=== PATIENT | male | born 1985 | race American Indian/Alaskan Native ===

== ENCOUNTER 2016-08-26 10:04 | Emergency (ER) | payer OTHER ==
[2016-08-26 10:57] VITALS: BP 127/81
[2016-08-26] MEDS ORDERED: BSS 1 DROPS, TETRACAINE 0.5% 1 DROPS, FUL-GLO 1 MG OU ONE (11:56)
--- NOTE | 2016-08-26 12:02 | Emergency Department Report ---
ED Eye Problem HPI - General Chief complaint: Eye Problems Stated complaint: LT EYE SWELLING Time Seen by Provider: 08/26/16 11:56 Source: patient Mode of arrival: Ambulatory Limitations: No Limitations - History of Present Illness Initial comments: She is a 30-year-old male presents ED complaining of left eye pain and irritation times today. Patient states this morning he was walking and walked into a ware and brushed his left eye. Patient states irritation and clear drainage began afterwards. Patient's is difficulty opening left eye. Patient denies feeling a foreign object in eye. Patient denies fever/chills/nausea/vomiting/abdominal pain/loss of vision/ blurry vision. - Related Data Previous Rx's Medication Instructions Recorded Last Taken Type Ketorolac Tromethamine [Acular 1 - 2 drops OP Q6H #10 ml 08/26/16 Unknown Rx 0.5% Opth Soln] Polymyxin B Sulf/Trimethoprim 1 - 2 drops OP TID #10 ml 08/26/16 Unknown Rx [Polytrim Eye Drops [id number]/0.1%] Allergies Allergy/AdvReac Type Severity Reaction Status Date / Time No Known Allergies Allergy Unverified 08/26/16 10:54 ED Review of Systems ROS: Stated complaint: LT EYE SWELLING Other details as noted in HPI Constitutional: denies: chills, fever Eyes: eye pain. denies: eye discharge, vision change ENT: denies: ear pain, throat pain Respiratory: denies: cough, shortness of breath, wheezing Cardiovascular: denies: chest pain, palpitations Endocrine: no symptoms reported Gastrointestinal: denies: abdominal pain, nausea, diarrhea Genitourinary: denies: urgency, dysuria Musculoskeletal: denies: back pain, joint swelling, arthralgia Skin: denies: rash, lesions Neurological: denies: headache, weakness, paresthesias Psychiatric: denies: anxiety, depression Hematological/Lymphatic: denies: easy bleeding, easy bruising ED Past Medical Hx - Past Medical History Previous Medical History?: No - Surgical History Past Surgical History?: No - Social History Smoking Status: Current Every Day Smoker Substance Use Type: Alcohol - Medications Home Medications: Home Medications Medication Instructions Recorded Confirmed Last Taken Type Ketorolac Tromethamine [Acular 1 - 2 drops OP Q6H #10 ml 08/26/16 Unknown Rx 0.5% Opth Soln] Polymyxin B Sulf/Trimethoprim 1 - 2 drops OP TID #10 ml 08/26/16 Unknown Rx [Polytrim Eye Drops [id number]/0.1%] ED Physical Exam - General Limitations: No Limitations General appearance: alert, in no apparent distress - Head Head exam: Present: atraumatic, normocephalic, normal inspection - Eye Eye exam: Present: normal appearance, PERRL, EOMI, conjunctival injection (left) . Absent: scleral icterus, nystagmus, periorbital swelling, periorbital tenderness - Expanded Eye Exam Expanded Eyelids: Normal Inspection: Left Pupils: Regular, Round: Bilateral, Reactive: Bilateral Sclera/Conjunctival: Normal Inspection: Right, Injection: Left Visual acuity (R) = 20/: 15 Visual acuity (L) = 20/: 50 With correction: No - ENT ENT exam: Present: mucous membranes moist - Neck Neck exam: Present: normal inspection, full ROM. Absent: tenderness, lymphadenopathy - Respiratory Respiratory exam: Present: normal lung sounds bilaterally. Absent: respiratory distress, wheezes, rales, rhonchi - Cardiovascular Cardiovascular Exam: Present: regular rate, normal rhythm. Absent: systolic murmur, diastolic murmur, rubs, gallop - GI/Abdominal GI/Abdominal exam: Present: soft, normal bowel sounds. Absent: distended, tenderness - Rectal Rectal exam: Present: deferred - Extremities Exam Extremities exam: Present: normal inspection - Back Exam Back exam: Present: normal inspection - Neurological Exam Neurological exam: Present: alert, oriented X3 - Psychiatric Psychiatric exam: Present: normal affect, normal mood - Skin Skin exam: Present: warm, dry, intact, normal color. Absent: rash ED Course Vital Signs 08/26/16 10:54 Temperature 97.6 F Pulse Rate 63 Respiratory 18 Rate Blood Pressure 127/81 O2 Sat by Pulse 100 Oximetry ED Medical Decision Making - Medical Decision Making 30-year-old male presents with left eye corneal abrasion. ED course: Tetracaine applied to eyes bilaterally. Fluorescent stain applied bilaterally. There is corneal uptake uptake at the center and 9:00. Eyes flushed bilaterally with 20 mL of normal saline. there is no foreign object in eyes Visual acuity performed. Vision acuity documented in exam. R- 20/15. L- 20/50. Bilat 20/20. Left eye patch applied. Discussed the patient to rest I next couple of days and follow-up Discussed the patient to follow up with seat coverer. Discussed the patient to use eyedrops antibiotic and pain drops as described. Patient states he understands instructions given and will follow-up. Patient is in no acute or respiratory distress. Critical care attestation.: If time is entered above; I have spent that time in minutes in the direct care of this critically ill patient, excluding procedure time. ED Disposition Clinical Impression: Corneal abrasion, left Qualifiers: Encounter type: initial encounter Qualified Code(s): S05.02XA - Injury of conjunctiva and corneal abrasion without foreign body, left eye, initial encounter Disposition: DISCHARGED TO HOME OR SELFCARE Is pt being admited?: No Does the pt Need Aspirin: No Condition: Stable Instructions: Corneal Abrasion (ED) Additional Instructions: Follow-up with seat coverer as referred in 2-5 days. Follow-up with primary care physician as well. He is worsening symptoms or loss of lesions return to ED otherwise follow-up with seat coverer Prescriptions: Ketorolac Tromethamine [Acular 0.5% Opth Soln] 1 - 2 drops OP Q6H #10 ml Polymyxin B Sulf/Trimethoprim [Polytrim Eye Drops [id number]/0.1%] 1 - 2 drops OP TID #10 ml Referrals: PRIMARY MD JESSICA [Primary Care Provider] - 3-5 Days CHANCE MEAD MD [Staff Physician] - 3-5 Days [facility] [Outside] - 3-5 Days [facility] [Outside] - 3-5 Days Forms: Work/School Release Form(ED) Time of Disposition: 13:12
[2016-08-26] MEDS ORDERED: TETRACAINE 0.5% ONE (12:17)
[2016-08-26] MEDS ORDERED: FUL-GLO OP ONE (12:17)
== END 2016-08-26 13:53 | disposition home or self-care (01) ==
LOC: ED 10:04
DX: S05.02XA Injury of conjunctiva and corneal abrasion without foreign body, left eye, initial encounter (principal); F17.200 Nicotine dependence, unspecified, uncomplicated; X58.XXXA Exposure to other specified factors, initial encounter; Y93.89 Activity, other specified; Y92.89 Other specified places as the place of occurrence of the external cause; Y99.8 Other external cause status
CPT/HCPCS: 99283